=== PATIENT | male | born 1925 | race Caucasian/White ===

== ENCOUNTER 2016-06-07 18:06 | Inpatient (IN) | payer OTHER, BC ==
[~2016-06-07] VITALS: Ht 172.7 cm; Wt 93.5 kg
[~2016-06-07 18:06] MED LIST: ALLOPURINOL100 MG PO; AMLODIPINE BES2.5 MG PO; AMLODIPINE BESYL5 MG PO; ASPIR-LOW81 MG PO; ASPIRIN E.C.81 M1 PO; ASPIRIN81 M2 PO; ATENOLOL100 MG PO; Aspirin E.C. PO; B COMPLETE1 EACH PO; CALCITRIOL0.25 MCG PO; CARDURA2 M1 PO; COLCHICINE,COL0.6 MG PO; COUMADIN3 MG PO; CYANOCOBALAMI100 MCG PO; Cardura PO; Colchicine,Colcrys PO; Coumadin Daily Dose PO; Coumadin,Jantoven PO; DEXILANT30 MG PO; DOLOPHINE HCL5 MG PO; DOXAZOSIN MESYLA2 MG PO; FEOSOL45 MG PO; FUROSEMIDE40 MG PO; GABAPENTIN300 MG PO; GLUTOFAC1 EACH PO; Hytrin PO; IMDUR30 MG PO; IRON18 MG PO; IRON27 MG PO; IRON325 M1 PO; Imdur PO; LANTUS 10100 UNITS/ SC; LANTUS 3 M100 UNITS/ SC; LANTUS 3 M100 UNITS1 SC; LASIX40 MG PO; LEVOTHYROXINE25 MCG PO; LIDODERM 5% P1 PATCH TD; LISINOPRIL40 MG PO; Lasix PO; METHADONE5 MG PO; MINIPRIN81 MG PO; Methadone HCl PO; Methadone PO; NEURONTIN300 MG PO; NORVASC5 MG PO; Neurontin PO; Norvasc PO; PLAVIX75 MG PO; PRAVACHOL80 MG PO; PRAVASTATIN SOD80 MG PO; PROTONIX40 MG PO; Pravachol PO; SENOKOT S,PE1 TABLET PO; SENOKOT,SENN1 TABLET PO; SERTRALINE HCL25 MG PO; Senokot,Sennagen PO; TYLENOL EXTRA500 MG PO; Tenormin PO; VALIUM5 MG PO; VITAMIN B-1100 MG PO; VITAMIN B-12 PO; VITAMIN D PO; VITAMIN D-3 PO; VITAMIN D-32000 UNIT PO; VITAMIN D1000 UNIT PO; Vitamin B Complex PO; WARFARIN SODIUM2 MG PO; WARFARIN SODIUM3 MG PO; ZANTAC150 MG PO; ZESTRIL,PRINIVI40 M1 PO; ZYLOPRIM100 MG PO; Zantac PO; Zestril,Prinivil PO; Zocor PO; Zyloprim PO
[2016-06-07 19:17] LABS: EOSINOPHIL (%) 6.5 % (0-5); EOSINOPHIL COUNT 0.5 K/uL (0-0.3); HEMATOCRIT 31.6 % (38.0-50.0); IMMATURE GRANULOCYTE (%) 0.9 % (0.0-0.7); IMMATURE GRANULOCYTE COUNT 0.7 K/uL; LYMPHOCYTE COUNT 2.8 K/uL (1.0-2.8); MEAN PLAT.VOLUME 9.4 uM^3 (9.0-12.4); MONOCYTE (%) 11.1 % (3-12); MONOCYTE COUNT 0.9 K/uL (0-0.8); NEUTROPHIL (%) 46.4 % (45-76); NEUTROPHIL COUNT 3.7 K/uL (1.8-6.4); PLATELET COUNT 152 K/uL (156-360); RBC DIS.WIDTH-CV 14.7 % (11.8-14.6); RBC DIS.WIDTH-SD 51.6 % (39-53); RED BLOOD COUNT 3.16 M/uL (4.00-5.50)
[2016-06-07 19:29] LABS: CHLORIDE 102 mEq/L (99-109); SODIUM 138 mEq/L (136-147)
[2016-06-07 19:31] LABS: GLUCOSE 144 mg/dL (70-99)
[2016-06-07 19:34] LABS: ANION GAP 12 MEQ/L (2-14)
[2016-06-07 19:35] LABS: GFR ESTIMATE (CALCULATED) 15 mL/min/
[2016-06-07 19:39] LABS: TROP-I INTERPRETATION NEGATIVE; TROPONIN-I 0.02 ng/mL (0.0-0.30)
[2016-06-07 19:44] LABS: UREA NITROGEN (BUN) 123 mg/dL (9-23)
[2016-06-07 20:21] LABS: ADD MIUA? NO; BILIRUBIN NEGATIVE; BLOOD NEGATIVE; COLOR YELLOW ((YELLOW)); GLUCOSE (STRIP) NEGATIVE; KETONES NEGATIVE; LEUKOCYTES NEGATIVE; NITRITE NEGATIVE; PROTEIN (STRIP) NEGATIVE; SPECIFIC GRAVITY 1.013 (1.000-1.030); UCUL ADDED? NO; UROBILINOGEN 0.2 MG/DL (0.2-1.0)
[2016-06-07] MEDS ORDERED: ZANTAC150 MG PO (20:21)
[2016-06-07] MEDS ORDERED: VITAMIN B-122500 MCG SL (20:22)
[2016-06-07] MEDS ORDERED: THERAGRAN1 TABLET PO (20:22)
[2016-06-07] MEDS ORDERED: VITAMIN D32000 UNI1 PO (20:23)
[2016-06-07] MEDS ORDERED: PLAVIX75 MG PO (20:26)
[2016-06-07] MEDS ORDERED: LEVAQUIN500 MG PO (20:27)
[2016-06-08 00:12] VITALS: BP 132/68
[2016-06-08 04:04] VITALS: BP 116/54
[2016-06-08 06:15] LABS: HEMATOCRIT 29.3 % (38.0-50.0); MCH 31.7 PG (29.0-34.0); MCHC 31.7 G/DL (30.0-36.0); MEAN PLAT.VOLUME 9.9 uM^3 (9.0-12.4); PLATELET COUNT 137 K/uL (156-360); RBC DIS.WIDTH-SD 54.8 % (39-53); RED BLOOD COUNT 2.93 M/uL (4.00-5.50); WHITE BLOOD COUNT 7.4 K/uL (4.1-10.2)
[2016-06-08 07:15] VITALS: BP 150/65
[2016-06-08 07:24] LABS: ANION GAP 10 MEQ/L (2-14); CHLORIDE 104 MEQ/L (99-109); GFR ESTIMATE (CALCULATED) 16 mL/min/; GLUCOSE 181 mg/dL (70-99); POTASSIUM 4.9 MEQ/L (3.7-5.4); SAMPLE HEMOLYSIS CHECK 0; SAMPLE ICTERIC CHECK 0; SAMPLE LIPEMIA CHECK 0; SODIUM 139 MEQ/L (136-147)
[2016-06-08 07:26] LABS: UREA NITROGEN (BUN) 111 mg/dL (9-23)
[2016-06-08 07:51] LABS: INTACT PARATHYROID HORMONE 52 pg/mL (10-69)
[2016-06-08 12:00] VITALS: BP 141/64
[2016-06-08 14:32] LABS: URIC ACID 10.4 mg/dL (3.1-9.2)
[2016-06-08 15:55] VITALS: BP 157/71
[2016-06-08 19:23] VITALS: BP 144/64
[2016-06-08 21:31] LABS: INTER. NORMALIZED RATIO 1.1; PROTHROMBIN TIME 10.9 (9.2-11.2); PTT 31.3 (25-32)
[2016-06-09] VITALS (7 sets, daily range): BP systolic 130–186; BP diastolic 58–89
[2016-06-09 05:34] LABS: HEMATOCRIT 30.5 % (38.0-50.0); MCH 31.6 PG (29.0-34.0); MCHC 32.1 G/DL (30.0-36.0); MCV 98.4 FL (86-99); MEAN PLAT.VOLUME 9.6 uM^3 (9.0-12.4); PLATELET COUNT 137 K/uL (156-360); RBC DIS.WIDTH-CV 14.7 % (11.8-14.6); RBC DIS.WIDTH-SD 52.8 % (39-53); WHITE BLOOD COUNT 7.7 K/uL (4.1-10.2)
[2016-06-09 05:44] LABS: INTER. NORMALIZED RATIO 1.1; PROTHROMBIN TIME 11.2 (9.2-11.2)
[2016-06-09 05:57] LABS: ANION GAP 10 MEQ/L (2-14); CHLORIDE 108 MEQ/L (99-109); GFR ESTIMATE (CALCULATED) 18 mL/min/; POTASSIUM 4.2 MEQ/L (3.7-5.4); SAMPLE HEMOLYSIS CHECK 0; SAMPLE ICTERIC CHECK 0; SAMPLE LIPEMIA CHECK 0; SODIUM 141 MEQ/L (136-147); UREA NITROGEN (BUN) 95 mg/dL (9-23)
[2016-06-09 05:58] LABS: GLUCOSE 95 mg/dL (70-99)
[2016-06-10 03:40] VITALS: BP 187/74
[2016-06-10 04:47] LABS: CHLORIDE 111 mEq/L (99-109); POTASSIUM 4.7 mEq/L (3.7-5.4); SODIUM 143 mEq/L (136-147)
[2016-06-10 04:49] LABS: GLUCOSE 127 mg/dL (70-99)
[2016-06-10 04:51] LABS: ANION GAP 11 MEQ/L (2-14)
[2016-06-10 04:53] LABS: GFR ESTIMATE (CALCULATED) 18 mL/min/
[2016-06-10 04:54] LABS: UREA NITROGEN (BUN) 83 mg/dL (9-23)
[2016-06-10 06:29] LABS: INTER. NORMALIZED RATIO 1.1
[2016-06-10 08:42] VITALS: BP 136/71
[2016-06-10 11:45] VITALS: BP 164/61
[2016-06-10 16:19] VITALS: BP 162/60
[2016-06-10 17:42] LABS: POINT-OF-CARE USER ID 612031313
[2016-06-10 20:00] VITALS: BP 168/61
[2016-06-11] VITALS: BP 158/61
[2016-06-11 03:47] LABS: CHLORIDE 112 mEq/L (99-109); POTASSIUM 4.4 mEq/L (3.7-5.4); SODIUM 143 mEq/L (136-147)
[2016-06-11 03:49] LABS: GLUCOSE 125 mg/dL (70-99)
[2016-06-11 03:50] LABS: ANION GAP 10 MEQ/L (2-14)
[2016-06-11 03:52] LABS: GFR ESTIMATE (CALCULATED) 20 mL/min/
[2016-06-11 03:53] LABS: UREA NITROGEN (BUN) 75 mg/dL (9-23)
[2016-06-11 04:00] VITALS: BP 155/60
[2016-06-11 04:01] LABS: INTER. NORMALIZED RATIO 1.2; PROTHROMBIN TIME 12.1 (9.2-11.2); PTT 41.2 (25-32)
[2016-06-11 08:31] VITALS: BP 177/83
[2016-06-11 11:12] VITALS: BP 176/75
[2016-06-11 15:37] VITALS: BP 131/65
[2016-06-11 19:52] VITALS: BP 156/68
[2016-06-12 04:07] VITALS: BP 178/62
[2016-06-12 07:32] VITALS: BP 154/60
[2016-06-12 07:58] LABS: HEMATOCRIT 32.9 % (38.0-50.0); MCH 31.5 PG (29.0-34.0); MCHC 31.6 G/DL (30.0-36.0); MCV 99.7 FL (86-99); MEAN PLAT.VOLUME 10.3 uM^3 (9.0-12.4); PLATELET COUNT 135 K/uL (156-360); RBC DIS.WIDTH-CV 15.1 % (11.8-14.6); RBC DIS.WIDTH-SD 54.8 % (39-53); WHITE BLOOD COUNT 9.6 K/uL (4.1-10.2)
[2016-06-12 08:10] LABS: INTER. NORMALIZED RATIO 1.6; PROTHROMBIN TIME 16.7 (9.2-11.2); PTT 50.3 (25-32)
[2016-06-12 09:38] LABS: ANION GAP 9 MEQ/L (2-14); CHLORIDE 110 MEQ/L (99-109); CREATINE KINASE 91 IU/L (1-294); GFR ESTIMATE (CALCULATED) 20 mL/min/; GLUCOSE 112 mg/dL (70-99); IRON 22 MCG/DL (35-150); POTASSIUM 4.2 MEQ/L (3.7-5.4); SAMPLE HEMOLYSIS CHECK 0; SAMPLE ICTERIC CHECK 0; SAMPLE LIPEMIA CHECK 0; SODIUM 143 MEQ/L (136-147); UREA NITROGEN (BUN) 67 mg/dL (9-23)
[2016-06-12 11:35] VITALS: BP 146/61
[2016-06-12 16:30] VITALS: BP 198/82
[2016-06-12 19:40] VITALS: BP 163/75
[2016-06-13 00:01] VITALS: BP 133/72
[2016-06-13 07:47] VITALS: BP 138/74
[2016-06-13 09:39] LABS: ANION GAP 8 MEQ/L (2-14); CHLORIDE 110 MEQ/L (99-109); GFR ESTIMATE (CALCULATED) 23 mL/min/; GLUCOSE 82 mg/dL (70-99); POTASSIUM 3.9 MEQ/L (3.7-5.4); SAMPLE HEMOLYSIS CHECK 0; SAMPLE ICTERIC CHECK 0; SAMPLE LIPEMIA CHECK 0; SODIUM 142 MEQ/L (136-147); UREA NITROGEN (BUN) 61 mg/dL (9-23)
[2016-06-13 10:15] LABS: INTER. NORMALIZED RATIO 3.5; PROTHROMBIN TIME 37.3 (9.2-11.2)
[2016-06-13 16:12] VITALS: BP 136/70
[2016-06-13 21:53] LABS: POINT-OF-CARE USER ID BHSKTD
[2016-06-14 00:16] VITALS: BP 178/73
[2016-06-14 00:30] VITALS: BP 148/66
[2016-06-14 03:10] VITALS: BP 110/70
[2016-06-14 09:56] LABS: HEMATOCRIT 27.5 % (38.0-50.0); MCH 31.8 PG (29.0-34.0); MCV 99.3 FL (86-99); MEAN PLAT.VOLUME 9.7 uM^3 (9.0-12.4); PLATELET COUNT 119 K/uL (156-360); RBC DIS.WIDTH-CV 15.2 % (11.8-14.6); RBC DIS.WIDTH-SD 55.9 % (39-53); RED BLOOD COUNT 2.77 M/uL (4.00-5.50); WHITE BLOOD COUNT 11.7 K/uL (4.1-10.2)
[2016-06-14 10:05] LABS: INTER. NORMALIZED RATIO 3.1; PROTHROMBIN TIME 32.8 (9.2-11.2)
[2016-06-14 10:21] LABS: BASE EXCESS 0.1 mEq/L (-3 to +3); BICARBONATE 24.7 mEq/L (22-26); METHEMOGLOBIN 1.6 % (0-1.5); PCO2 39 mm Hg (35-45); PO2 73 mm Hg (80-100); pH 7.41 (7.35-7.45)
[2016-06-14 10:22] LABS: COMMENTS - BLOOD GASES A+C+; DEVICE NCH; O2 FLOW 15 L/MIN; SITE LR; TOTAL RESP RATE 26 resp/min
[2016-06-14 10:33] LABS: ANION GAP 12 MEQ/L (2-14); CHLORIDE 109 MEQ/L (99-109); GFR ESTIMATE (CALCULATED) 22 mL/min/; GLUCOSE 64 mg/dL (70-99); POTASSIUM 3.7 MEQ/L (3.7-5.4); SAMPLE HEMOLYSIS CHECK 0; SAMPLE ICTERIC CHECK 0; SAMPLE LIPEMIA CHECK 0; SODIUM 143 MEQ/L (136-147); UREA NITROGEN (BUN) 67 mg/dL (9-23)
[2016-06-14 11:30] VITALS: BP 153/62
[2016-06-15] VITALS (7 sets, daily range): BP systolic 153–207; BP diastolic 67–91
[2016-06-15 15:17] LABS: HEMATOCRIT 28.4 % (38.0-50.0); MCH 32.3 PG (29.0-34.0); MCHC 32.7 G/DL (30.0-36.0); MCV 98.6 FL (86-99); PLATELET COUNT 147 K/uL (156-360); RBC DIS.WIDTH-CV 15.4 % (11.8-14.6); RBC DIS.WIDTH-SD 55.6 % (39-53); RED BLOOD COUNT 2.88 M/uL (4.00-5.50); WHITE BLOOD COUNT 13.5 K/uL (4.1-10.2)
[2016-06-15 15:40] LABS: ANION GAP 13 MEQ/L (2-14); CHLORIDE 108 MEQ/L (99-109); GFR ESTIMATE (CALCULATED) 25 mL/min/; POTASSIUM 4.4 MEQ/L (3.7-5.4); SAMPLE HEMOLYSIS CHECK 1; SAMPLE ICTERIC CHECK 0; SAMPLE LIPEMIA CHECK 0; SODIUM 142 MEQ/L (136-147); UREA NITROGEN (BUN) 67 mg/dL (9-23)
[2016-06-15 15:41] LABS: GLUCOSE 309 mg/dL (70-99)
[2016-06-15 16:44] LABS: PROTHROMBIN TIME 49.7 (9.2-11.2)
[2016-06-15 16:45] LABS: INTER. NORMALIZED RATIO 4.7
[2016-06-15 18:59] LABS: BASE EXCESS -1.8 mEq/L (-3 to +3); BICARBONATE 23.1 mEq/L (22-26); CARBOXY HGB 1.7 % (0-5); COMMENTS - BLOOD GASES C+A+; DEVICE NCHH; FI02 100 %; METHEMOGLOBIN 1.3 % (0-1.5); O2 FLOW 70 L/MIN; PCO2 39 mm Hg (35-45); PO2 64 mm Hg (80-100); SITE RR; TOTAL RESP RATE 35 resp/min; pH 7.38 (7.35-7.45)
[2016-06-15 20:09] LABS: TROP-I INTERPRETATION NEGATIVE; TROPONIN-I 0.07 ng/mL (0.0-0.30)
[2016-06-15 20:18] LABS: ANION GAP 13 MEQ/L (2-14); CHLORIDE 106 MEQ/L (99-109); GFR ESTIMATE (CALCULATED) 26 mL/min/; GLUCOSE 362 mg/dL (70-99); POTASSIUM 3.7 MEQ/L (3.7-5.4); SAMPLE HEMOLYSIS CHECK 0; SAMPLE ICTERIC CHECK 0; SAMPLE LIPEMIA CHECK 0; SODIUM 140 MEQ/L (136-147); UREA NITROGEN (BUN) 70 mg/dL (9-23)
[2016-06-15 22:32] LABS: POINT-OF-CARE METER ID UU13113748
[2016-06-15 23:01] LABS: METH RESISTANT S AUREUS PCR POSITIVE (NEGATIVE)
[2016-06-15 23:05] LABS: PROBE CHECK PASS
[2016-06-16] VITALS (23 sets, daily range): BP systolic 0–193; BP diastolic 0–93
[2016-06-16 05:56] LABS: HEMATOCRIT 26.9 % (38.0-50.0); MCH 32.1 PG (29.0-34.0); MCHC 32.3 G/DL (30.0-36.0); MCV 99.3 FL (86-99); MEAN PLAT.VOLUME 9.7 uM^3 (9.0-12.4); PLATELET COUNT 161 K/uL (156-360); RBC DIS.WIDTH-CV 15.2 % (11.8-14.6); RBC DIS.WIDTH-SD 54.9 % (39-53); RED BLOOD COUNT 2.71 M/uL (4.00-5.50); WHITE BLOOD COUNT 14.6 K/uL (4.1-10.2)
[2016-06-16 06:17] LABS: INTER. NORMALIZED RATIO 3.9; PROTHROMBIN TIME 41.5 (9.2-11.2); PTT 63.2 (25-32)
[2016-06-16 06:44] LABS: ANION GAP 12 MEQ/L (2-14); CHLORIDE 106 MEQ/L (99-109); GFR ESTIMATE (CALCULATED) 22 mL/min/; GLUCOSE 219 mg/dL (70-99); POTASSIUM 3.6 MEQ/L (3.7-5.4); SAMPLE HEMOLYSIS CHECK 0; SAMPLE ICTERIC CHECK 0; SAMPLE LIPEMIA CHECK 0; SODIUM 143 MEQ/L (136-147); UREA NITROGEN (BUN) 73 mg/dL (9-23)
[2016-06-16 12:15] LABS: POINT-OF-CARE METER ID UU13113731
[2016-06-16 17:19] LABS: POINT-OF-CARE METER ID UU13113731
[2016-06-17] VITALS (18 sets, daily range): BP systolic 111–159; BP diastolic 33–62
[2016-06-17 07:03] LABS: ANION GAP 13 MEQ/L (2-14); CHLORIDE 106 MEQ/L (99-109); GFR ESTIMATE (CALCULATED) 22 mL/min/; GLUCOSE 186 mg/dL (70-99); MAGNESIUM 1.9 mg/dl (1.3-2.7); POTASSIUM 3.4 MEQ/L (3.7-5.4); SAMPLE HEMOLYSIS CHECK 0; SAMPLE ICTERIC CHECK 0; SAMPLE LIPEMIA CHECK 0; SODIUM 144 MEQ/L (136-147); UREA NITROGEN (BUN) 81 mg/dL (9-23)
[2016-06-17 07:09] LABS: INTER. NORMALIZED RATIO 4.9
[2016-06-17 12:23] LABS: POINT-OF-CARE METER ID UU14162636
[2016-06-18 04:00] VITALS: BP 152/75
[2016-06-18 07:22] LABS: INTER. NORMALIZED RATIO 3.6; PROTHROMBIN TIME 38.3 (9.2-11.2)
[2016-06-18 07:34] LABS: ANION GAP 10 MEQ/L (2-14); CHLORIDE 105 MEQ/L (99-109); GFR ESTIMATE (CALCULATED) 22 mL/min/; GLUCOSE 203 mg/dL (70-99); POTASSIUM 3.4 MEQ/L (3.7-5.4); SAMPLE HEMOLYSIS CHECK 0; SAMPLE ICTERIC CHECK 0; SAMPLE LIPEMIA CHECK 0; SODIUM 141 MEQ/L (136-147); UREA NITROGEN (BUN) 87 mg/dL (9-23)
[2016-06-18 07:36] LABS: VANCOMYCIN, TROUGH 16.2 MCG/ML (10-20)
[2016-06-18 07:45] VITALS: BP 154/68
[2016-06-18 08:43] LABS: MAGNESIUM 1.9 mg/dl (1.3-2.7)
[2016-06-18 09:50] LABS: HEMATOCRIT 27.3 % (38.0-50.0); MCH 32.4 PG (29.0-34.0); MCHC 32.6 G/DL (30.0-36.0); MCV 99.3 FL (86-99); MEAN PLAT.VOLUME 10.4 uM^3 (9.0-12.4); PLATELET COUNT 159 K/uL (156-360); RBC DIS.WIDTH-CV 15.6 % (11.8-14.6); RBC DIS.WIDTH-SD 55.5 % (39-53); RED BLOOD COUNT 2.75 M/uL (4.00-5.50); WHITE BLOOD COUNT 15.4 K/uL (4.1-10.2)
[2016-06-18 12:05] VITALS: BP 142/63
[2016-06-18 15:53] VITALS: BP 142/63
[2016-06-18 19:59] VITALS: BP 144/72
[2016-06-18 23:47] VITALS: BP 148/62
[2016-06-19 04:44] VITALS: BP 130/60
[2016-06-19 06:50] VITALS: BP 140/72
[2016-06-19 06:57] LABS: EOSINOPHIL (%) 0 % (0-5); HEMATOCRIT 24.2 % (38.0-50.0); IMMATURE GRANULOCYTE COUNT 0.1 K/uL; LYMPHOCYTE COUNT 0.8 K/uL (1.0-2.8); MCH 33.3 PG (29.0-34.0); MCHC 33.5 G/DL (30.0-36.0); MCV 99.6 FL (86-99); MEAN PLAT.VOLUME 10.1 uM^3 (9.0-12.4); MONOCYTE (%) 4.1 % (3-12); MONOCYTE COUNT 0.5 K/uL (0-0.8); NEUTROPHIL (%) 88.5 % (45-76); NEUTROPHIL COUNT 11.1 K/uL (1.8-6.4); NRBC (%) 0.2 /100 WBC (0-0); PLATELET COUNT 132 K/uL (156-360); RBC DIS.WIDTH-CV 15.4 % (11.8-14.6); RBC DIS.WIDTH-SD 55.4 % (39-53); RED BLOOD COUNT 2.43 M/uL (4.00-5.50); WHITE BLOOD COUNT 12.5 K/uL (4.1-10.2)
[2016-06-19 07:34] LABS: INTER. NORMALIZED RATIO 2.3; PROTHROMBIN TIME 23.7 (9.2-11.2)
[2016-06-19 07:43] LABS: ANION GAP 9 MEQ/L (2-14); CHLORIDE 106 MEQ/L (99-109); GFR ESTIMATE (CALCULATED) 22 mL/min/; GLUCOSE 287 mg/dL (70-99); SAMPLE HEMOLYSIS CHECK 0; SAMPLE ICTERIC CHECK 0; SAMPLE LIPEMIA CHECK 0; SODIUM 142 MEQ/L (136-147); UREA NITROGEN (BUN) 94 mg/dL (9-23)
[2016-06-19 07:44] LABS: POTASSIUM 4.3 MEQ/L (3.7-5.4)
[2016-06-19 07:51] LABS: POINT-OF-CARE METER ID UU13113781; POINT-OF-CARE USER ID ENVKC36
[2016-06-19 11:49] LABS: POINT-OF-CARE METER ID UU14162636
[2016-06-19 12:00] VITALS: BP 132/62
[2016-06-19 15:33] LABS: VANCOMYCIN, TROUGH 15.3 MCG/ML (10-20)
[2016-06-19 16:43] LABS: URIC ACID 6.7 mg/dL (3.1-9.2)
[2016-06-19 17:00] VITALS: BP 138/60
[2016-06-19 19:45] VITALS: BP 152/68
[2016-06-19 23:57] VITALS: BP 171/68
[2016-06-20 05:09] LABS: EOSINOPHIL (%) 0 % (0-5); IMMATURE GRANULOCYTE (%) 0.8 % (0.0-0.7); IMMATURE GRANULOCYTE COUNT 0.1 K/uL; LYMPHOCYTE COUNT 0.7 K/uL (1.0-2.8); MCH 32.4 PG (29.0-34.0); MCHC 32.5 G/DL (30.0-36.0); MCV 99.6 FL (86-99); MEAN PLAT.VOLUME 10.4 uM^3 (9.0-12.4); MONOCYTE (%) 5.8 % (3-12); MONOCYTE COUNT 0.9 K/uL (0-0.8); NEUTROPHIL COUNT 13.3 K/uL (1.8-6.4); NRBC (%) 0.3 /100 WBC (0-0); PLATELET COUNT 135 K/uL (156-360); RBC DIS.WIDTH-CV 15.2 % (11.8-14.6); RBC DIS.WIDTH-SD 55.2 % (39-53); RED BLOOD COUNT 2.81 M/uL (4.00-5.50)
[2016-06-20 05:24] LABS: INTER. NORMALIZED RATIO 1.8; PROTHROMBIN TIME 18.3 (9.2-11.2)
[2016-06-20 05:27] VITALS: BP 130/63
[2016-06-20 05:34] LABS: ANION GAP 11 MEQ/L (2-14); CHLORIDE 103 MEQ/L (99-109); GFR ESTIMATE (CALCULATED) 22 mL/min/; GLUCOSE 265 mg/dL (70-99); POTASSIUM 3.6 MEQ/L (3.7-5.4); SAMPLE HEMOLYSIS CHECK 0; SAMPLE ICTERIC CHECK 0; SAMPLE LIPEMIA CHECK 0; SODIUM 140 MEQ/L (136-147); UREA NITROGEN (BUN) 98 mg/dL (9-23)
[2016-06-20 08:00] VITALS: BP 146/65
[2016-06-20 09:11] LABS: POINT-OF-CARE METER ID UU13113781
[2016-06-20 09:12] LABS: POINT-OF-CARE USER ID ENVKC36
[2016-06-20 09:12] LABS: POINT-OF-CARE METER ID UU13113781
[2016-06-20 09:12] LABS: POINT-OF-CARE METER ID UU13113781
[2016-06-20 16:01] LABS: POINT-OF-CARE METER ID UU13113698
== END 2016-06-20 20:20 | DRG 682 ==
LOC: EME 18:06 → 4WEST 22:46 → EDOF 22:46 → 5SOUTH 22:46 → 4EAST 22:46 → 5SOUTH 23:54 → 4WEST 06-15 19:41 → 4EAST 06-17 19:27
PROVIDERS: Emergency Medicine; Family Medicine; Hospitalist; Internal Medicine; Internal Medicine Nephrology; Internal Medicine Pulmonary Disease; Physician Assistant Medical; Student in an Organized Health Care Education/Training Program; Surgery
DX: N17.9 Acute kidney failure, unspecified (principal); J96.01 Acute respiratory failure with hypoxia; J69.0 Pneumonitis due to inhalation of food and vomit; G93.41 Metabolic encephalopathy; J18.9 Pneumonia, unspecified organism; I13.0 Hypertensive heart and chronic kidney disease with heart failure and stage 1 through stage 4 chronic kidney disease, or unspecified chronic kidney disease; I95.9 Hypotension, unspecified; J44.0 Chronic obstructive pulmonary disease with (acute) lower respiratory infection; J44.1 Chronic obstructive pulmonary disease with (acute) exacerbation; E66.9 Obesity, unspecified; Z68.33 Body mass index [BMI] 33.0-33.9, adult; R53.81 Other malaise; Z51.5 Encounter for palliative care; Z66 Do not resuscitate; I27.2 Other secondary pulmonary hypertension; I50.9 Heart failure, unspecified; E11.22 Type 2 diabetes mellitus with diabetic chronic kidney disease; N18.4 Chronic kidney disease, stage 4 (severe); I25.10 Atherosclerotic heart disease of native coronary artery without angina pectoris; K59.00 Constipation, unspecified; D63.1 Anemia in chronic kidney disease; D50.9 Iron deficiency anemia, unspecified; I82.442 Acute embolism and thrombosis of left tibial vein; Z79.4 Long term (current) use of insulin; Y95 Nosocomial condition; T38.0X5A Adverse effect of glucocorticoids and synthetic analogues, initial encounter; T40.2X5A Adverse effect of other opioids, initial encounter; K21.9 Gastro-esophageal reflux disease without esophagitis; Z86.73 Personal history of transient ischemic attack (TIA), and cerebral infarction without residual deficits; I25.2 Old myocardial infarction; Z95.0 Presence of cardiac pacemaker; Z87.891 Personal history of nicotine dependence; Z96.651 Presence of right artificial knee joint; Z98.1 Arthrodesis status; M19.90 Unspecified osteoarthritis, unspecified site; I87.8 Other specified disorders of veins; L97.219 Non-pressure chronic ulcer of right calf with unspecified severity; L08.9 Local infection of the skin and subcutaneous tissue, unspecified; G89.29 Other chronic pain; M54.9 Dorsalgia, unspecified; G93.89 Other specified disorders of brain
CPT/HCPCS: 36415; 36600; 70450; 71010; 76770; 78580; 78582; 80048; 80048 91; 80069; 80202; 81003; 82272; 82330; 82550; 82570; 82803; 82948; 83540; 83605; 83735; 83880; 83930; 83935; 83970; 84156; 84300; 84466; 84484; 84550; 85025; 85027; 85610; 85730; 87040; 87070; 87077; 87147; 87186; 87205; 87641; 93306; 93970; 94002; 94640; 94640 76; 94660; 94760; 94799; 97530 GO; 97530 GP; 99202; 99281; 99285; A9540; A9567; J0692; J0881; J1644; J1756; J1815; J1940; J1956; J2543; J2930; J3370; J7030; J7040; J7050; J7120; J7512